=== PATIENT | female | born 1955 | race Caucasian/White ===

== ENCOUNTER → 2017-07-01 14:07 | Outpatient (CLI) | payer OTHER, SELFPAY ==
--- NOTE | 2017-07-01 14:11 | HPBI_ITS ---
MAMMOGRAPHY - BILATERAL SCREENING REASON FOR EXAM: Female, 61 years old. Routine annual screening examination. PERTINENT HISTORY: Grandmother with breast cancer. Aunt with breast cancer. TECHNIQUE: Digital bilateral breast dottie (3D mammographic acquisition) in the CC and MLO projections. 2-D mediolateral oblique (MLO) and craniocaudad (CC) views of both breasts were obtained. CAD: Full Field Digital Mammography with Computer Added Detection was performed. COMPARISON: Comparison is made with prior study dated June 28, 2016 and June 19, 2015. FINDINGS: Breast Composition: The breasts are heterogeneously dense, which may obscure small masses. There are no dominant masses or suspicious calcifications. No other significant abnormalities are identified. There has been no significant change since the prior study. HPBI/SCREENING MAMM (CAD), BILAT IMPRESSION: Stable bilateral screening mammogram. Yearly follow-up mammogram recommended. (A) ASSESSMENT CATEGORY: BIRADS Category 1: Negative. A letter regarding these results will be sent to the patient by the facility within 30 days. Approximately 10% of breast cancers are not detected by mammography. A normal mammogram should not delay biopsy of a clinically suspicious abnormality. [id number] Electronically Signed: Austen Clement MD at 15:46 EST Tel [phone], Service support ,
== END ==
PROVIDERS: Family Provider Nurse Practitioner; PCP Nurse Practitioner; Visit Provider Nurse Practitioner
DX: Z78.0 Asymptomatic menopausal state (principal); Z12.31 Encounter for screening mammogram for malignant neoplasm of breast
CPT/HCPCS: 77063; 77067

== ENCOUNTER → 2017-07-10 14:03 | Outpatient (CLI) | payer OTHER, SELFPAY ==
--- NOTE | 2017-07-10 14:06 | HPBD_ITS ---
STUDY: DUAL ENERGY X-RAY ABSORPTIOMETRY / DXA REASON FOR EXAM: Female, 61 years old. The patient is postmenopausal. Loss of height. TECHNIQUE: Bone Mineral Density (BMD) measurements of lumbar spine and bilateral hips were obtained. COMPARISON: Comparison is made with prior examination dated June 22, 2015. FINDINGS: Lumbar Spine (L1-L4): g/cm2 (1.005) / T-score (-1.6) / Z-score (-0.2) Findings are suggestive of osteopenia with a moderate fracture risk. Left Femur Total: g/cm2 (0.581) / T-score (-3.4) / Z-score (-2.3) Left Femoral Neck: g/cm2 (0.631) / T-score (-2.9) / Z-score (-1.6) Right Femur Total: g/cm2 (0.588) / T-score (-3.3) / Z-score (-2.3) Right Femoral Neck: g/cm2 (0.665) / T-score (-2.7) / Z-score (-1.3) The T-Scores on the most recent prior examination were: Lumbar Spine (L1-L4): There has been improvement of bone density since the previous examination. Left Femur Total: which represents a worsening of 3%. Right Femur Total: which represents an improvement of 2.6%. HPBD/Dexa Bone Density Study (HP) IMPRESSION: The patient is considered osteoporotic as outlined below according to World Sunny Organization (WHO) criteria with a high fracture risk. There has been improvement of bone density since the previous examination. Reference Information: The T-score is the number of standard deviations above or below the standard which is normal for young adults at their peak bone mineral density. The World Health Organization (WHO) interprets the T-scores as follows: Above -1 Normal bone density Between -1 and -2.5 Osteopenia Equal to / or below -2.5 Osteoporosis As a practical clinical guideline, osteopenia may be graded as follows: Mild -1 through -1.5 Moderate -1.6 through -2.0 Severe -2.1 through -2.4 The Z-score is the number of standard deviations above or below age-matched controls. A Z-score of less than -1.5 would be considered abnormal. References: 1. NIH Osteoporosis and Related Bone Diseases http://www.osteo.org 2. International Society for Clinical Densitometry http://www.iscd.org 3. National Osteoporosis Foundation http://www.nof.org Electronically Signed: Austen Clement MD at 15:19 EST Tel [phone], Service support ,
== END ==
PROVIDERS: Family Provider Nurse Practitioner; PCP Nurse Practitioner; Visit Provider Nurse Practitioner
DX: M81.0 Age-related osteoporosis without current pathological fracture (principal); Z78.0 Asymptomatic menopausal state
CPT/HCPCS: 77080

== ENCOUNTER 2017-07-30 09:35 | Emergency (ER) | payer OTHER, SELFPAY ==
[2017-07-30 09:36] VITALS: BP 128/82; PULSE 84; RESP 20; TEMP 36.7; O2SAT 94; BMI 22.8
--- NOTE | 2017-07-30 09:56 | EKG12_ITS ---
Test Reason : SYNCOPE Blood Pressure : / mmHG Vent. Rate : 083 BPM Atrial Rate : 083 BPM P-R Int : 160 ms QRS Dur : 090 ms QT Int : 354 ms P-R-T Axes : 070 055 058 degrees QTc Int : 415 ms Normal sinus rhythm Normal ECG Confirmed by KACY NUNES, PIERRE ([id number]), non linear editor LEDA OTTO ([id number]) on 07/31/2017 2:31:53 PM Referred By: Confirmed By:PIERRE WOODRUFF MD
--- NOTE | 2017-07-30 09:56 | CT_ITS ---
STUDY: CT BRAIN WITHOUT CONTRAST REASON FOR EXAM: Female, 61 years old. Syncope. Tremors. No seizure history. RADIATION DOSAGE (If Supplied By Facility): CTDIvol = ( 44.99 ) mGy, DLP = ( 745.49 ) mGycm TECHNIQUE: Transaxial CT imaging of the brain was performed without administration of intravenous contrast material. Individualized dose optimization techniques were used for this CT. COMPARISON: None. FINDINGS: Normal soft tissue structures. Normal calvarium. Keno Attendant scanogram image shows normal-appearing sized sella. Normal size ventricles and extra-axial spaces for the patient's age. Normal white matter tracts of the cerebral hemispheres. Normal basal ganglia and thalami. Normal brainstem. Normal cerebellum. There is no intracranial hemorrhage or abnormal extra axial fluid collection identified. There are no findings of an acute territorial ischemic infarction. Normal visualized paranasal sinuses. Left greater than right degenerative TMJs noted. CT/Brain/Head without Contrast IMPRESSION: Nonacute unenhanced CT scan of the brain. Negative for intracranial acute hemorrhage or large territorial acute ischemic infarct identified. Electronically Signed: Chad Linton, at 11:03 EDT Tel , Service support ,
--- NOTE | 2017-07-30 09:58 | ED.VISSUMM ---
- ER Visit Summary Date of Service: 07/30/17 Chief Complaint: Syncope History of Present Illness: The patient is a 61 F that had a brief shaking episode in the loss of consciousness this morning that lasted for less than a few minutes. She woke up spontaneously. She had syncope in the past, but never had shaking with it. Her only other symptoms today include a headache. She attributes this to sinus congestion. She has had congestion and a sore throat. She also has upper bilateral back pain. This is not new. She denies any chest pain, palpitations, or heart racing. Denies shortness of breath. Denies abdominal pain or other GI symptoms. Denies new back pain. Denies weakness or numbness. Denies change in vision, speech, swallowing, or balance. Has any history of seizures. She denies taking any new medications. Denies any trauma. Physical Examination: Vital signs unremarkable. Afebrile. Alert and oriented. No acute distress. HEENT exam unremarkable. Neck nontender. Heart regular. Lungs clear. Abdomen soft. No focal or lateralizing abnormalities. NIH stroke scale is 0. Skin appears normal. Test Results: EKG shows sinus rhythm at a rate of 83. No sign of prior infarction. No Q waves. No dysrhythmias, Brugada, or any other rhythm abnormalities. Labs and CT pending. Emergency Department Course and Treatment: Patient placed on a monitor. N.p.o. while awaiting results. CT head showed no acute abnormalities. Chest x-ray showed no acute abnormalities. Troponin normal. White count 4.3, glucose 132, creatinine 1.06. Coags unremarkable. Patient was observed on the monitor. She had no new or recurrent symptoms. I advised the patient that continued evaluation for syncope in her case would require admission for cardiac monitoring. Patient declined this. She said she had multiple episodes of syncope in the past, and would like to go home. She voiced understanding of the risks. Patient did request antibiotics for a sinus infection. Will prescribe doxycycline. Treatment Plan: As above Disposition: Discharged Impression: 1. Syncope This note was generated with [employer] software. It may contain incorrect words, spelling, and punctuation that were not noted in review of the chart prior to signing ED Disposition - Plan for ED Patient: Chief Complaint: Syncope Referrals: Sabine Ward [Primary Care Provider] -
[2017-07-30 10:01] VITALS: BP 123/81; PULSE 104; RESP 20; O2SAT 96
[2017-07-30 10:06] LABS: Bedside Glucose 125 mg/dL (70-110)
[2017-07-30 10:08] LABS: Absolute Lymphocyte Count 0.48 X10^3/ul (0.83-4.51); Absolute Neutrophil Count 2.9 X10^3/uL (2.0-7.7); Basophil# 0.04 X10^3/uL; Basophil% 0.9 % (0-1); Eosinophil# 0.11 X10^3/uL; Eosinophils% 2.6 % (0-5); Hematocrit 38.8 % (37-47); Hemoglobin 13.1 g/dl (12.0-15.0); Lymphocyte # 0.48 X10^3/ul (4.0); Lymphocyte % 11.2 % (19-41); Mean Corp Hgb Conc 33.8 g/gl (32-36); Mean Corpuscular Hgb 31.6 pg (27.0-32.0); Mean Corpuscular Volume 93.7 fL (81-99); Mean Platelet Vol. 8.9 fl (6.2-12.0); Monocyte# 0.78 X10^3/uL; Monocyte% 18.2 % (0-10); Neutrophil # 2.86 X10^3/uL (2.7-7.7); Neutrophil % 66.9 % (47-70); Platelet Count 190 K/mm3 (150-450); RBC Distribution Width CV 11.8 % (11.6-14.6); RBC Distribution Width SD 39.8 fl (35.1-43.9); Red Blood Count 4.14 M/mm3 (4.2-5.4); White Blood Count 4.3 K/mm3 (4.4-11.0)
[2017-07-30 10:10] LABS: Differential Indicated SCAN CRITERIA MET; POSITIVE COUNT NO; POSITIVE DIFFERENTIAL YES; POSITIVE MORPHOLOGY NO
[2017-07-30 10:25] LABS: Anion Gap 6 (5-15); BUN 14 mg/dL (7-18); BUN/Creat Ratio 13.2 RATIO (10-20); Calcium,Total 8.4 mg/dL (8.5-10.1); Chloride 103 mmol/L (98-107); Creatinine, Serum 1.06 mg/dL (0.55-1.02); EST Glomerular Filtration Rate 56 mL/min (>60); Est Glom Filt Rate - Afr Amer 67 mL/min (>60); Estimated Creatinine Clearance 41.52 ml/min; Glucose 132 mg/dL (74-106); Potassium 3.8 mmol/L (3.5-5.1); Sodium Level 139 mmol/L (136-145)
--- NOTE | 2017-07-30 10:32 | RAD_ITS ---
STUDY: X-RAY CHEST REASON FOR EXAM: Female, 61 years old. Cough and chest congestion for a week. Lightheaded. Syncopal episode today. Upper body tremors. TECHNIQUE: Single AP upright portable chest view. COMPARISON: 06/13/2015 chest FINDINGS: EKG wires overlie chest. The lungs appear clear of focal pulmonary consolidation with air bronchograms and appear well expanded. There is no demonstrated pleural abnormality. Normal size heart for projection. Normal mediastinum and nora. Normal visualized pulmonary arteries. Normal visualized aortic knob and descending thoracic aorta given mild S-shaped thoracic scoliosis. Moderate to severe degenerative thoracic spine. Normal visualized ribs, clavicles, and shoulders. There is no demonstrated abnormality of the visualized soft tissue structures of the upper abdomen. No subdiaphragmatic free air seen grossly. RAD/Chest 1 View IMPRESSION: Nonacute x-ray examination of the chest. No active cardiopulmonary disease identified. Electronically Signed: Chad Linton, at 11:15 EDT Tel , Service support ,
[2017-07-30 10:34] LABS: International Normalized Ratio 1.1; Partial Thromboplast Time 23.3 Seconds (24.1-36.2); Prothrombin Time (Protime)PT. 14.4 SECONDS (11.7-14.9)
[2017-07-30 11:17] VITALS: BP 130/82; PULSE 67; RESP 16; O2SAT 97
[2017-07-30 11:54] VITALS: BP 158/100; PULSE 92; RESP 16; O2SAT 94
[2017-07-30 12:04] VITALS: BP 154/93; PULSE 92; RESP 21; O2SAT 96
--- NOTE | 2017-07-30 12:47 | ED.RN ---
[facility] CAN BE DISCONTINUED PER DR HARRIS'S ORDER. CT SCAN NEGATIVE AND PT WILL BE DISCHARGED TO HOME.
--- NOTE | 2017-07-30 12:50 | ED.DEP ---
ED Disposition - Plan for ED Patient: Chief Complaint: Syncope Instructions: ED Fainting Unkn Cause Prescriptions: Doxycycline Monohydrate 100 mg PO BID #20 cap Referrals: Sabine Ward [Primary Care Provider] -
[2017-07-30 12:58] VITALS: BP 165/107; PULSE 92; RESP 18; O2SAT 93
== END 2017-07-30 12:58 | disposition home or self-care (01) ==
PROVIDERS: Emergency Provider Emergency Medicine; Family Provider Nurse Practitioner; PCP Nurse Practitioner
DX: R55 Syncope and collapse (principal); M81.0 Age-related osteoporosis without current pathological fracture; J45.909 Unspecified asthma, uncomplicated; K21.9 Gastro-esophageal reflux disease without esophagitis; Z79.899 Other long term (current) drug therapy
CPT/HCPCS: 70450; 71045; 80048; 82962; 84484; 85025; 85610; 85730; 93005; 99285; J7030; A4216

== ENCOUNTER → 2017-08-22 10:38 | Outpatient (CLI) | payer OTHER, SELFPAY ==
--- NOTE | 2017-08-22 10:40 | ECHOD_ITS ---
Reason For Study: Syncopal Episode Procedure This was a 2D Doppler, Color Flow transthoracic echocardiogram. The exam was of adequate technical quality. Exam performed in department. Left Ventricle Normal LV size. Left ventricular systolic function is normal. The estimated ejection fraction is 65 %. Normal diastology for age. No regional wall motion abnormalities noted. Right Ventricle Normal RV size. Normal systolic function. Atria Normal left atrium. The right atrium is mildly enlarged. No doppler evidence for ASD. Mitral Valve There is no mitral annular calcification. Normal mitral valve. Trivial mitral valve insufficiency. Tricuspid Valve Normal tricuspid valve. Mild tricuspid valve insufficiency. Right ventricular systolic pressure estimated to be 24 mmHg. Aortic Valve Trisinus/trileaflet aortic valve. Mild focal aortic valve calcification. Trivial aortic valve insufficiency. Pulmonic Valve The pulmonic valve is not well visualized. Mild (1+) pulmonic valve insufficiency. Great Vessels Normal sized aortic root. Pericardium/Pleural No pericardial effusion. MMode/2D Measurements & Calculations LVIDd: 3.2 cm IVSd: 0.74 cm Ao root diam: 2.6 cm LVIDs: 2.2 cm LVPWd: 0.79 cm LA dimension: 3.4 cm RVDd: 2.5 cm FS: 29.2 % LAV(MOD-bp): 24.5 ml LA A4 area: 8.1 cm2 RA A4 area: 10.5 cm2 LAV(MOD-bp) Indexed: 16.6 ml/m2 LAV(MOD-sp2): 30.8 ml LAV(MOD-sp4): 14.0 ml Doppler Measurements & Calculations MV E max norberto: 63.6 cm/sec Lat Peak E' Norberto: 7.1 cm/sec Med Peak E' Norberto: 6.3 cm/sec MV A max norberto: 69.0 cm/sec E/E' lat: 9.0 E/E' med: 10.1 MV E/A: 0.92 Ao V2 max: 140.2 cm/sec AI max norberto: 444.7 cm/sec LV V1 max: 113.8 cm/sec Ao max P.9 mmHg AI max P.3 mmHg LV V1 max P.2 mmHg Ao V2 mean: 101.3 cm/sec AI dec slope: 189.9 cm/sec2 Ao mean P.5 mmHg AI P1/2t: 685.8 msec Ao V2 VTI: 28.1 cm PA V2 max: 104.0 cm/sec TR max norberto: 226.2 cm/sec TR max P.5 mmHg Interpretation Summary Left ventricular systolic function is normal. The estimated ejection fraction is 65 %. The right atrium is mildly enlarged. Trivial mitral valve insufficiency. Mild tricuspid valve insufficiency. Mild focal aortic valve calcification. Trivial aortic valve insufficiency. Mild (1+) pulmonic valve insufficiency. Right ventricular systolic pressure estimated to be 24 mmHg. Normal diastology for age. Ordering Physician: Sabine Ward Referring Physician: Sabine Ward Performed By: Orquidea Carr, MIRLANDECS, RVT
== END ==
PROVIDERS: Family Provider Nurse Practitioner; PCP Nurse Practitioner; Visit Provider Nurse Practitioner
DX: R55 Syncope and collapse (principal)
CPT/HCPCS: 93306

== ENCOUNTER → 2018-03-24 12:37 | Outpatient (CLI) | payer OTHER, SELFPAY ==
--- NOTE | 2018-03-24 12:47 | CT_ITS ---
STUDY: CT CHEST WITHOUT CONTRAST REASON FOR EXAM: Female, 62 years old. Pulmonary disease. History of asthma RADIATION DOSAGE (If Supplied By Facility): CTDIvol = ( 13.96 ) mGy, DLP = ( 438.10 ) mGycm TECHNIQUE: Transaxial imaging was performed without the administration of intravenous contrast material. Individualized dose optimization techniques were used for this CT. COMPARISON: None. FINDINGS: TRACHEA, THYROID, ESOPHAGUS: No tracheomalacia,stricture or wall thickening. Thyroid and esophagus are normal CARDIOVASCULAR SYSTEM: The thoracic aorta is grossly within normal limits. The pulmonary trunk and the left pulmonary arteries are also grossly within normal limits. The heart is not enlarged. There are no vascular developmental anomalies. ARJUN AND LYMPH NODES: No hilar masses and no mediastinal, hilar, axillary or supraclavicular adenopathy LUNGS, LOW-ATTENUATION: No traction bronchiectasis, honeycombing, lung cysts or cavitations. Centrilobular emphysematous changes in both lungs. LUNGS, HIGH ATTENUATION: No nodules/masses, ground glass opacities/consolidations or increased interstitial markings LUNGS, MOSAIC/CRAZY PAVING: Not evident PLEURA AND CHEST WALL: No plural effusions, pneumothoraces,rib fractures or any osteolytic/osteoblastic changes . The soft tissue chest wall including the breasts are normal UPPER ABDOMEN: Benign hepatic cysts. The largest is 2.1 cm and is in the right lobe. CT/Chest without Contrast IMPRESSION: Centrilobular emphysematous changes in both lungs. No acute findings in the lungs. Benign hepatic cysts Electronically Signed: Chace Box MD at 3:33 EST Tel , Service support ,
== END ==
PROVIDERS: Family Provider Nurse Practitioner; PCP Nurse Practitioner; Referring Provider Internal Medicine Pulmonary Disease; Visit Provider Internal Medicine Pulmonary Disease
DX: J84.9 Interstitial pulmonary disease, unspecified (principal); J47.9 Bronchiectasis, uncomplicated
CPT/HCPCS: 71250

== ENCOUNTER → 2018-07-27 08:23 | Outpatient (CLI) | payer OTHER, SELFPAY ==
--- NOTE | 2018-07-27 08:26 | BI_ITS ---
MAMMOGRAPHY - BILATERAL SCREENING REASON FOR EXAM: Female, 62 years old. Routine annual screening examination. PERTINENT HISTORY: Grandmother with breast cancer. TECHNIQUE: Digital bilateral breast dottie (3D mammographic acquisition) in the CC and MLO projections. 2-D mediolateral oblique (MLO) and craniocaudad (CC) views of both breasts were obtained. CAD: Full Field Digital Mammography with Computer Added Detection was performed. COMPARISON: Comparison is made with prior study dated July 01, 2017 and June 28, 2016. FINDINGS: Breast Composition: The breasts are heterogeneously dense, which may obscure small masses. There are no dominant masses or suspicious calcifications. No other significant abnormalities are identified. There has been no significant change since the prior study. BI/SCREENING MAMM (CAD), BILAT IMPRESSION: Stable bilateral screening mammogram. Yearly follow-up mammogram recommended. (A) ASSESSMENT CATEGORY: BIRADS Category 1: Negative. A letter regarding these results will be sent to the patient by the facility within 30 days. Approximately 10% of breast cancers are not detected by mammography. A normal mammogram should not delay biopsy of a clinically suspicious abnormality. [id number] Electronically Signed: Austen Clement, at 9:43 EDT , Service support ,
== END ==
PROVIDERS: Family Provider Nurse Practitioner; PCP Nurse Practitioner; Referring Provider Nurse Practitioner; Visit Provider Nurse Practitioner
DX: Z12.31 Encounter for screening mammogram for malignant neoplasm of breast (principal); Z80.3 Family history of malignant neoplasm of breast
CPT/HCPCS: 77063; 77067

== ENCOUNTER → 2019-06-09 11:17 | Outpatient (CLI) | payer OTHER, SELFPAY ==
--- NOTE | 2019-06-09 11:21 | BD_ITS ---
STUDY: DUAL ENERGY X-RAY ABSORPTIOMETRY / DXA REASON FOR EXAM: Female, 63 years old. 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 COMPARISON: Comparison is made with prior study dated July 10, 2017. FINDINGS: Lumbar Spine (L1-L4): g/cm2 (1.073) / T-score (-1.1) / Z-score (0.5) Findings are suggestive of osteopenia with a low fracture risk. Left Femur Total: g/cm2 (0.593) / T-score (-3.3) / Z-score (-2.1) Left Femoral Neck: g/cm2 (0.654) / T-score (-2.8) / Z-score (-1.3) Right Femur Total: g/cm2 (0.729) / T-score (-2.2) / Z-score (-1.1) Right Femoral Neck: g/cm2 (0.845) / T-score (-1.4) / Z-score (0.0) The T-Scores on the most recent prior examination were: Lumbar Spine (L1-L4): There has been improvement of bone density since the previous examination. Left Femur Total: which represents an improvement of 3.6%. Right Femur Total: which represents an improvement of 27.1%. BD/Dexa Bone Density Study IMPRESSION: The patient is considered osteoporotic as outlined below according to World Sunny Organization (WHO) criteria with a high fracture risk. There has been improvement of bone density since the previous examination. Reference Information: The T-score is the number of standard deviations above or below the standard which is normal for young adults at their peak bone mineral density. The World Health Organization (WHO) interprets the T-scores as follows: Above -1 Normal bone density Between -1 and -2.5 Osteopenia Equal to / or below -2.5 Osteoporosis As a practical clinical guideline, osteopenia may be graded as follows: Mild -1 through -1.5 Moderate -1.6 through -2.0 Severe -2.1 through -2.4 The Z-score is the number of standard deviations above or below age-matched controls. A Z-score of less than -1.5 would be considered abnormal. References: 1. NIH Osteoporosis and Related Bone Diseases http://www.osteo.org 2. International Society for Clinical Densitometry http://www.iscd.org 3. National Osteoporosis Foundation http://www.nof.org Electronically Signed: Austen Clement, at 12:37 EST , Service support ,
--- NOTE | 2019-06-09 11:21 | BI_ITS ---
MAMMOGRAPHY - BILATERAL SCREENING REASON FOR EXAM: Female, 63 years old. Routine annual screening examination. PERTINENT HISTORY: Grandmother with breast cancer. Aunt with breast cancer. TECHNIQUE: Digital bilateral breast sharon (3D mammographic acquisition) in the CC and MLO projections. 2-D mediolateral oblique (MLO) and craniocaudad (CC) views of both breasts were obtained. CAD: Full Field Digital Mammography with Computer Added Detection was performed. COMPARISON: Comparison is made with prior examination dated July 27, 2018 and July 01, 2017. FINDINGS: Breast Composition: The breasts are heterogeneously dense, which may obscure small masses. There are no dominant masses or suspicious calcifications. No other significant abnormalities are identified. There has been no significant change since the prior study. BI/SCREEN MAMM (CAD) W/SHARON BILAT IMPRESSION: Stable bilateral screening mammogram. Yearly follow-up mammogram recommended. (A) ASSESSMENT CATEGORY: BIRADS Category 1: Negative. A letter regarding these results will be sent to the patient by the facility within 30 days. Approximately 10% of breast cancers are not detected by mammography. A normal mammogram should not delay biopsy of a clinically suspicious abnormality. [id number] Electronically Signed: Austen Clement, at 15:41 EST , Service support ,
== END ==
PROVIDERS: PCP Nurse Practitioner; Referring Provider Nurse Practitioner; Visit Provider Nurse Practitioner
DX: M81.0 Age-related osteoporosis without current pathological fracture (principal); Z12.31 Encounter for screening mammogram for malignant neoplasm of breast
CPT/HCPCS: 77063; 77067; 77080

== ENCOUNTER → 2020-07-07 10:48 | Outpatient (CLI) | payer MEDICARE, SELFPAY ==
--- NOTE | 2020-07-07 10:52 | BI_ITS ---
MAMMOGRAPHY - BILATERAL SCREENING REASON FOR EXAM: Female, 64 years old. Routine annual screening examination. PERTINENT HISTORY: Grandmother with breast cancer. Aunt with breast cancer. TECHNIQUE: Digital bilateral breast sharon (3D mammographic acquisition) in the CC and MLO projections. 2-D mediolateral oblique (MLO) and craniocaudad (CC) views of both breasts were obtained. CAD: Full Field Digital Mammography with Computer Added Detection was performed. COMPARISON: Comparison is made with prior study of 06/09/2019 and July 27. FINDINGS: Breast Composition: The breasts are heterogeneously dense, which may obscure small masses. There is a 1.3 cm x 1 cm possible nodular density in the central lateral aspect of the left breast. Correlation with ultrasound is recommended. No other significant abnormalities are identified. BI/SCRN MAMM (CAD)W/SHARON BILAT IMPRESSION: Possible 1.3 cm x 1 cm nodular density in the central lateral aspect of the left breast. Correlation with ultrasound is recommended. ASSESSMENT CATEGORY: BIRADS Category 0: Incomplete. Need additional imaging evaluation. A letter regarding these results will be sent to the patient by the facility within 30 days. Approximately 10% of breast cancers are not detected by mammography. A normal mammogram should not delay biopsy of a clinically suspicious abnormality. [id number] Electronically Signed: Austen Clement MD at 12:12 EST , Service support ,
== END ==
PROVIDERS: PCP Nurse Practitioner Family; Referring Provider Nurse Practitioner Family; Visit Provider Nurse Practitioner Family
DX: Z12.31 Encounter for screening mammogram for malignant neoplasm of breast (principal); N63.20 Unspecified lump in the left breast, unspecified quadrant
CPT/HCPCS: 77063; 77067

== ENCOUNTER → 2020-07-10 09:55 | Outpatient (CLI) | payer MEDICARE, SELFPAY ==
--- NOTE | 2020-07-10 09:56 | US_ITS ---
STUDY: ULTRASOUND BREAST - LEFT REASON FOR EXAM: Female, 64 years old. Abnormal density on mammogram. TECHNIQUE: Axial and longitudinal images of the LEFT breast were performed with a high resolution ultrasound transducer. # OF IMAGES: 46 COMPARISON: None. FINDINGS: LEFT Breast: There is no abnormality in the soft tissues of the breast to correlate with the mammographic abnormality. There is no abnormal soft tissue tissue mass. There is no cyst formation. US/Breast Limited Unilateral IMPRESSION: There is no abnormality in the soft tissues of the breast to correlate with the mammographic abnormality. There is no abnormal soft tissue tissue mass. There is no cyst formation. ASSESSMENT CATEGORY: BIRADS Category 2: Benign. A letter regarding these results will be sent to the patient by the facility within 30 days. Electronically Signed: Ngozi Barnes MD at 15:04 EST Tel , Service support ,
== END ==
PROVIDERS: PCP Nurse Practitioner Family; Referring Provider Nurse Practitioner Family; Visit Provider Nurse Practitioner Family
DX: R92.8 Other abnormal and inconclusive findings on diagnostic imaging of breast (principal)
CPT/HCPCS: 76642

== ENCOUNTER → 2021-01-23 12:42 | Outpatient (CLI) | payer MEDICARE, SELFPAY ==
--- NOTE | 2021-01-23 14:12 | ST.MBS ---
Modified Barium Swallow - Patient Information Study Date: 01/23/21 Study Time: 13:00 Direct Billable Minutes: 135 Total Minutes procedure & reportin Diagnosis: Interstitial pulmonary disease, unspecified (J84.9) Referring Physician: Chad Romero V Reason for Referral: Objective assessment of swallow function under fluoroscopy order per referring physician in a patient w/ Interstitial pulmonary disease, unspecified; patient reports coughing when things go down the wrong pipe and states this may happen ~1x/month. Reports coughing w/ peaches recently. Denies hx of PNA in the past 5 years. Medical History: History provided by patient - seasonal allergies, asthma, GERD Dentition: Natural Teeth Respiratory Status: Oxygenating on Room Air - Penetration-Aspiration Scale Penetration-Aspiration Scale: OBJECTIVE ASSESSMENT OF SWALLOW FUNCTION (QUANTITATIVE ? PER TRIAL): PENETRATION / ASPIRATION SCALE (JORDAN): 1 = does not enter airway 2 = enters airway/above vocal folds/ejected 3 = enters airway/above vocal folds/not ejected 4 = enters airway/contacts vocal folds/ejected 5 = enters airway/contacts vocal folds/not ejected 6 = enters airway/below vocal folds/ejected 7 = enters airway/below vocal folds/not ejected despite effort 8 = enters airway/below vocal folds/no effort - Penetration-Aspiration Scale Score Thin Liquid via teaspoon Result: 1= does not enter airway Thin Liquid via teaspoon Trial 2 Result: 2= enter airway/above vocal folds/ejected Thin Liquid via large single sip from cup Result: 2= enter airway/above vocal folds/ejected Thin Liquid via sequential sips from cup Result: 5= enters airways/contacts vocal folds/not ejected Thin Liquid via single sip from straw Result: 1= does not enter airway Thin Liquid via small single sip from cup Result: 1= does not enter airway Pudding Result: 1= does not enter airway Pudding + Esophageal Screening Result: 1= does not enter airway Thin Liquid via small single sip from cup Trial 2 Result: 3= enters airways/above vocal folds/not ejected Thin Liquid via small single sip from cup Effortful swallow Result: 1= does not enter airway - Oral Phase Labial Seal: No Labial Escape Tongue Control During Bolus Hold: Cohesive bolus between tongue to palatal seal Bolus Preparation/Mastication: Timely and efficient chewing and mashing Bolus Transport/Lingual Motion: Slowed tongue motion Oral Residue: Residue collection on oral structures - Pharyngeal Phase Initiation of Pharyngeal Swallow: Bolus head in pyriforms Soft Palate Elevation: No bolus between soft palate and pharyngeal wall Laryngeal Elevation: Comp. Superior move thyroid cart w/comp. apprx arytenoid cart-epig pet Anterior Hyoid Excursion: Partial anterior movement Laryngeal Vestibule Closure at Height of Swallow: Incomplete; narrow column of air/contrast in laryngeal vestibule Pharyngeal Stripping Wave: Present - complete Pharyngoesophageal Segment Opening: Parital distension and partial duration; parital obstruction of flow Tongue Base Retraction: Trace column of contrast between tongue base & post. pharyngeal wall Pharyngeal Residue: Trace residue within or on pharyngeal structures - Esophageal Phase Esophageal Clearance: Esophageal retention - Diagnosis/Impression Diagnosis: mild oropharyngeal dysphagia (R13.12) Impression: The oral phase is primarily marked by reduced oral clearance, resulting in mild oral residue post deglutition. Residue effectively cleared w/ additional swallow. The pharyngeal phase is primarily marked by delayed pharyngeal swallow onset timing, resulting in suboptimal bolus location upon swallow onset (liquids pooling in pyriforms) and contributing to prandial laryngeal vestibule penetration. Reduced closure of the airway during deglutition insufficient anterior hyoid excursion resulting in reduced laryngeal vestibule closure, delayed and incomplete epiglottic inversion and reduced pharyngoesophageal segment distention/duration. Reduced pharyngeal contraction/swallow strength noted when cued for dry/volitional swallows to clear oropharyngeal residue. Screening of esophageal bolus clearance revealed marked retention. Laryngeal vestibule penetration occurred w/ intake of large volume/sequential boluses of thin liquid. Penetration contacted the vocal folds and was not ejected. Although aspiration was not visualized during this study, it is expected that continued laryngeal vestibule penetration w/out ejection would eventually accumulate and result in aspiration. Cannot rule out dysphagia as a contributing factor in respiratory disease. Use of a small volume thin liquid bolus in conjunction w/ an effortful swallow was effective to maintain sufficient laryngeal vestibule pressure/closure and eliminate penetration. Highly recommend skilled outpatient dysphagia intervention to implement an oropharyngeal strengthening exercise program focusing on improved swallow onset timing, anterior hyoid excursion, epiglottic inversion, PES distention and pharyngeal contraction. Extensive time spent following MBS conclusion reviewing images w/ the patient and providing education re: deficits identified and need for intervention to prevent further decline in swallow function. - Recommendations Diet: Regular Textures, Thin Liquids Compensatory Strategies: Small Sips - one sip at a time, effortful swallow, Sitting upright, Remain sitting upright for 30 minutes after PO intake - GERD precautions Need for Skilled Speech Therapy Services: Yes Education Completed: 1. Described result of evaluation. - Status Active ST Patient: Active - Contact Information [facility] Speech Therapy:: Soraya Wang M.A., [facility] PROGRAM DIRECTOR [address] [place] [address] x [phone] [email or web address] 01/23/21 16:01
== END ==
PROVIDERS: PCP Nurse Practitioner Family; Referring Provider Internal Medicine Pulmonary Disease; Visit Provider Internal Medicine Pulmonary Disease
DX: J84.9 Interstitial pulmonary disease, unspecified (principal)
CPT/HCPCS: 74230; 92611

== ENCOUNTER → 2021-03-09 12:31 | Outpatient (CLI) | payer MEDICARE, SELFPAY ==
[2021-03-09 15:24] LABS: Absolute Lymphocyte Count 0.99 X10^3/uL (0.83-4.51); Absolute Neutrophil Count 2.8 X10^3/uL (2.0-7.7); Basophil# 0.06 X10^3/uL; Basophil% 1.3 % (0-1); Eosinophil# 0.27 X10^3/uL; Eosinophils% 5.8 % (0-5); Hematocrit 41.8 % (37-47); Hemoglobin 14.1 g/dL (12.0-15.0); Lymphocyte # 0.99 X10^3/ul (0.83-4.51); Lymphocyte % 21.4 % (19-41); Mean Corp Hgb Conc 33.7 g/dL (32-36); Mean Corpuscular Hgb 31.5 pg (27.0-32.0); Mean Corpuscular Volume 93.3 fL (81-99); Mean Platelet Vol. 9.2 fl (6.2-12.0); Monocyte# 0.46 X10^3/uL; Monocyte% 9.9 % (0-10); NRBC Flagged by Analyzer 0 % (0-5); Neutrophil # 2.84 X10^3/uL (2.7-7.7); Neutrophil % 61.4 % (47-70); Platelet Count 287 K/mm3 (150-450); RBC Distribution Width SD 41.2 fl (35.1-43.9); Red Blood Count 4.48 M/mm3 (4.2-5.4); White Blood Count 4.6 K/mm3 (4.4-11.0)
== END ==
PROVIDERS: PCP Nurse Practitioner Family; Referring Provider Internal Medicine Pulmonary Disease; Visit Provider Internal Medicine Pulmonary Disease
DX: J45.909 Unspecified asthma, uncomplicated (principal)
CPT/HCPCS: 36415; 85025

== ENCOUNTER 2021-07-26 14:18 | Outpatient (CLI) | payer MEDICARE, SELFPAY ==
--- NOTE | 2021-07-26 14:21 | BI_ITS ---
MAMMOGRAPHY - BILATERAL SCREENING REASON FOR EXAM: Female, 65 years old. Routine annual screening examination. PERTINENT HISTORY: Sister with breast cancer. Grandmother with breast cancer. Aunt with breast cancer. TECHNIQUE: Digital bilateral breast sharon (3D mammographic acquisition) in the CC and MLO projections. 2-D mediolateral oblique (MLO) and craniocaudad (CC) views of both breasts were obtained. CAD: Full Field Digital Mammography with Computer Added Detection was performed. COMPARISON: Comparison is made with prior study dated 07/07/2020 and 06/09/2019. FINDINGS: Breast Composition: The breasts are heterogeneously dense, which may obscure small masses. There are no dominant masses or suspicious calcifications. No other significant abnormalities are identified. There has been no significant change since the prior study. BI/SCRN MAMM (CAD)W/SHARON BILAT IMPRESSION: Stable bilateral screening mammogram. Yearly follow-up mammogram recommended. (A) ASSESSMENT CATEGORY: BIRADS Category 1: Negative. A letter regarding these results will be sent to the patient by the facility within 30 days. Approximately 10% of breast cancers are not detected by mammography. A normal mammogram should not delay biopsy of a clinically suspicious abnormality. [id number] Electronically Signed: Austen Clement MD at 15:45 EDT ,
--- NOTE | 2021-07-26 14:29 | BD_ITS ---
STUDY: DUAL ENERGY X-RAY ABSORPTIOMETRY / DXA REASON FOR EXAM: Female, 65 years old. M810. Patient is postmenopausal. TECHNIQUE: Bone Mineral Density (BMD) measurements of lumbar spine and bilateral hips were obtained. COMPARISON: Comparison is made with prior examination of 06/09/2019. FINDINGS: Lumbar Spine (L1-L4): g/cm2 (0.744) / T-score (-3.0) / Z-score (-1.1) Findings are suggestive of osteoporosis with a high fracture risk. Left Femur Total: g/cm2 (0.529) / T-score (-3.4) / Z-score (-2.1) Left Femoral Neck: g/cm2 (0.487) / T-score (-3.3) / Z-score (-1.7) Right Femur Total: g/cm2 (0.513) / T-score (-3.5) / Z-score (-2.2) Right Femoral Neck: g/cm2 (0.506) / T-score (-3.1) / Z-score (-1.5) The T-Scores on the most recent prior examination were: Lumbar Spine (L1-L4): There has been worsening of bone density since the previous examination. Left Femur Total: which represents a worsening of 1.7%. Right Femur Total: which represents a worsening of 23.6%. BD/Dexa Bone Density Study IMPRESSION: The patient is considered osteoporotic as outlined below according to World Sunny Organization (WHO) criteria with a high fracture risk. There has been worsening of bone density since the previous examination. Reference Information: The T-score is the number of standard deviations above or below the standard which is normal for young adults at their peak bone mineral density. The World Health Organization (WHO) interprets the T-scores as follows: Above -1 Normal bone density Between -1 and -2.5 Osteopenia Equal to / or below -2.5 Osteoporosis As a practical clinical guideline, osteopenia may be graded as follows: Mild -1 through -1.5 Moderate -1.6 through -2.0 Severe -2.1 through -2.4 The Z-score is the number of standard deviations above or below age-matched controls. A Z-score of less than -1.5 would be considered abnormal. References: 1. NIH Osteoporosis and Related Bone Diseases www osteo.org 2. International Society for Clinical Densitometry www iscd.org 3. National Osteoporosis Foundation www nof.org Electronically Signed: Austen Clement MD at 8:58 EDT ,
== END 2021-07-26 23:59 | disposition home or self-care (01) ==
LOC: OPBD 14:18
PROVIDERS: PCP Nurse Practitioner Family; Visit Provider Nurse Practitioner Family
DX: M81.0 Age-related osteoporosis without current pathological fracture (principal); Z78.0 Asymptomatic menopausal state; Z12.31 Encounter for screening mammogram for malignant neoplasm of breast; Z80.3 Family history of malignant neoplasm of breast
CPT/HCPCS: 77063; 77067; 77080

== ENCOUNTER → 2022-07-30 | Outpatient (CLI) | payer MEDICARE, SELFPAY ==
--- NOTE | 2022-07-30 12:05 | BI_ITS ---
MAMMOGRAPHY - BILATERAL SCREENING REASON FOR EXAM: Female, 66 years old. Routine annual screening examination. PERTINENT HISTORY: Sister with breast cancer. Grandmother with breast cancer. Aunt with breast cancer. TECHNIQUE: Digital bilateral breast sharon (3D mammographic acquisition) in the CC and MLO projections. 2-D mediolateral oblique (MLO) and craniocaudad (CC) views of both breasts were obtained. CAD: Full Field Digital Mammography with Computer Added Detection was performed. COMPARISON: Comparison is made with prior study dated July 26, 2021 and July 07, 2020. FINDINGS: Breast Composition: The breasts are heterogeneously dense, which may obscure small masses. There are no dominant masses or suspicious calcifications. No other significant abnormalities are identified. There has been no significant change since the prior study. BI/SCRN MAMM (CAD)W/SHARON BILAT IMPRESSION: Stable bilateral screening mammogram. Yearly follow-up mammogram recommended. (A) ASSESSMENT CATEGORY: BIRADS Category 2: Benign. A letter regarding these results will be sent to the patient by the facility within 30 days. Approximately 10% of breast cancers are not detected by mammography. A normal mammogram should not delay biopsy of a clinically suspicious abnormality. [id number] Electronically Signed: Austen Clement MD at 13:29 EDT ,
== END | disposition home or self-care (01) ==
LOC: OPBI 12:03
PROVIDERS: PCP Nurse Practitioner Family; Visit Provider Nurse Practitioner Family
DX: Z12.31 Encounter for screening mammogram for malignant neoplasm of breast (principal); Z80.3 Family history of malignant neoplasm of breast
CPT/HCPCS: 77063; 77067

== ENCOUNTER → 2023-07-15 | Outpatient (CLI) | payer MEDICARE, SELFPAY ==
--- NOTE | 2023-07-15 10:47 | RAD_ITS ---
EXAM: XR CHEST, 2 VIEWS CLINICAL INDICATION: Respiratory bronchiolitis TECHNIQUE: Frontal and lateral views of the chest. COMPARISON: No relevant prior studies available. FINDINGS: LUNGS AND PLEURAL SPACES: Lungs appear hyperinflated. HEART: Normal heart size. MEDIASTINUM: No mediastinal or hilar mass. BONES/JOINTS: Reverse S scoliosis of the thoracolumbar spine. RAD/Chest PA and Lateral IMPRESSION: Pulmonary hyperinflation. Scoliosis. Electronically Signed: Isaac Kincaid MD at 11:37 EDT ,
== END | disposition home or self-care (01) ==
PROVIDERS: PCP Nurse Practitioner Family; Referring Provider Internal Medicine Pulmonary Disease; Visit Provider Internal Medicine Pulmonary Disease
DX: J84.115 Respiratory bronchiolitis interstitial lung disease (principal); J47.9 Bronchiectasis, uncomplicated
CPT/HCPCS: 71046

== ENCOUNTER → 2023-08-19 | Outpatient (CLI) | payer MEDICARE, SELFPAY ==
--- NOTE | 2023-08-19 13:11 | BI_ITS ---
MAMMOGRAPHY - BILATERAL SCREENING REASON FOR EXAM: Female, 67 years old. Routine annual screening examination. PERTINENT HISTORY: Sister with breast cancer. Grandmother with breast cancer. TECHNIQUE: Digital bilateral breast sharon (3D mammographic acquisition) in the CC and MLO projections. 2-D mediolateral oblique (MLO) and craniocaudad (CC) views of both breasts were obtained. CAD: Full Field Digital Mammography with Computer Added Detection was performed. COMPARISON: Comparison is made with prior study dated July 30, 2022 and July 26, 2021. FINDINGS: Breast Composition: The breasts are heterogeneously dense, which may obscure small masses. There are no dominant masses or suspicious calcifications. No other significant abnormalities are identified. There has been no significant change since the prior study. BI/SCRN MAMM (CAD)W/SHARON BILAT IMPRESSION: Stable bilateral screening mammogram. Yearly follow-up mammogram recommended. (A) ASSESSMENT CATEGORY: BIRADS Category 1: Negative. A letter regarding these results will be sent to the patient by the facility within 30 days. Approximately 10% of breast cancers are not detected by mammography. A normal mammogram should not delay biopsy of a clinically suspicious abnormality. [id number] Electronically Signed: Austen Clement MD at 15:38 EDT ,
--- NOTE | 2023-08-19 13:12 | BD_ITS ---
STUDY: DUAL ENERGY X-RAY ABSORPTIOMETRY / DXA REASON FOR EXAM: Female, 67 years old. 627.8Menopausal postmenopausalBONE DENSITY REASON FOR EXAM TECHNIQUE: Bone Mineral Density (BMD) measurements of lumbar spine and bilateral hips were obtained. COMPARISON: Comparison is made with prior study July 26, 2021. FINDINGS: Lumbar Spine (L1-L4): g/cm2 (0.734) / T-score (-3.1) / Z-score (-1.0) Findings are suggestive of osteoporosis with a high fracture risk. Left Femur Total: g/cm2 (0.519) / T-score (-3.5) / Z-score (-2.0) Left Femoral Neck: g/cm2 (0.518) / T-score (-3.0) / Z-score (-1.3) Right Femur Total: g/cm2 (0.420) / T-score (-4.3) / Z-score (-2.9) Right Femoral Neck: g/cm2 (0.411) / T-score (-4.0) / Z-score (-2.2) The T-Scores on the most recent prior examination were: Lumbar Spine (L1-L4): There has been worsening of bone density since the previous examination. Left Femur Total: which represents a worsening of 2%. Right Femur Total: which represents a worsening of 18%. BD/Dexa Bone Density Study IMPRESSION: The patient is considered osteoporotic as outlined below according to World Sunny Organization (WHO) criteria with a high fracture risk. There has been worsening of bone density since the previous examination. Reference Information: The T-score is the number of standard deviations above or below the standard which is normal for young adults at their peak bone mineral density. The World Health Organization (WHO) interprets the T-scores as follows: Above -1 Normal bone density Between -1 and -2.5 Osteopenia Equal to / or below -2.5 Osteoporosis As a practical clinical guideline, osteopenia may be graded as follows: Mild -1 through -1.5 Moderate -1.6 through -2.0 Severe -2.1 through -2.4 The Z-score is the number of standard deviations above or below age-matched controls. A Z-score of less than -1.5 would be considered abnormal. References: 1. NIH Osteoporosis and Related Bone Diseases www osteo.org 2. International Society for Clinical Densitometry www iscd.org 3. National Osteoporosis Foundation www nof.org Electronically Signed: Austen Clement MD at 14:38 EDT ,
== END | disposition home or self-care (01) ==
LOC: OPBD 13:09
PROVIDERS: PCP Nurse Practitioner Family; Referring Provider Nurse Practitioner Family; Visit Provider Nurse Practitioner Family
DX: M81.0 Age-related osteoporosis without current pathological fracture (principal); Z78.0 Asymptomatic menopausal state; Z12.31 Encounter for screening mammogram for malignant neoplasm of breast; Z80.3 Family history of malignant neoplasm of breast
CPT/HCPCS: 77063; 77067; 77080

== ENCOUNTER → 2024-08-19 | Outpatient (CLI) | payer MEDICARE, SELFPAY ==
--- NOTE | 2024-08-19 09:42 | BI_ITS ---
EXAM: SCRN MAMM (CAD)W/SHARON BILAT DATE: 08/19/2024 CLINICAL HISTORY: F, Age 68 y/o , SCREENING History of sister, grandmother and aunt with breast cancer. BREAST CANCER RISK ASSESSMENT: Not assessed. TECHNIQUE: Bilateral screening digital breast tomosynthesis with 2D and 3D images. Computer aided detection. COMPARISON: Prior exam(s) dated August 19, 2023.. FINDINGS: TISSUE DENSITY: The breast tissue is heterogenously dense, which may obscure small masses. Bilateral Breast Mammographic Findings: Questionable 1.3 cm nodular density in the slightly upper lateral aspect of the left breast. Correlation with ultrasound recommended. BI/SCRN MAMM (CAD)W/SHARON BILAT IMPRESSION: Right Breast: BIRADS 1 NEGATIVE. Left Breast: BIRADS 0 Incomplete: Need additional imaging evaluation and/or elton or mammograms for comparison.. OVERALL FINAL ASSESSMENT: BIRADS 0 Incomplete: Need additional imaging evaluati on and/or prior mammograms for comparison. RECOMMENDATION: Routine annual follow-up in 1 Year A letter with findings and recommendations will be mailed to the patient. Reading Location: [place] [id number]
== END | disposition home or self-care (01) ==
LOC: OPBI 09:40
PROVIDERS: PCP Nurse Practitioner Family; Referring Provider Nurse Practitioner Family; Visit Provider Nurse Practitioner Family
DX: Z12.31 Encounter for screening mammogram for malignant neoplasm of breast (principal)
CPT/HCPCS: 77063; 77067

== ENCOUNTER → 2024-08-26 | Outpatient (CLI) | payer MEDICARE, SELFPAY ==
--- NOTE | 2024-08-26 12:20 | US_ITS ---
PROCEDURE: BREAST LIMITED UNILATERAL 08/26/2024 REASON FOR EXAM: NODULAR DENSITY TECHNIQUE: Targeted left breast ultrasound. COMPARISON: Prior mammogram dated August 19, 2024. FINDINGS: Left breast ultrasound was targeted to the upper-outer quadrant.. There is a 1.3 cm x 1.6 cm x 1.2 cm irregular hypodense nodule at the 2 o'clock position of the breast at 5 cm from the nipple. Biopsy recommended. US/Breast Limited Unilateral IMPRESSION: Impression: 1.3 cm x 1.6 cm 1.2 cm irregular hypodense nodule at the 2 o'clock position of the breast at 5 cm from the nipple. Biopsy recommended. Birads: BI-RADS 4: SUSPICIOUS ABNORMALITY. Reading Location: [place] [id number]
== END | disposition home or self-care (01) ==
PROVIDERS: PCP Nurse Practitioner Family; Referring Provider Nurse Practitioner Family; Visit Provider Nurse Practitioner Family
DX: R92.8 Other abnormal and inconclusive findings on diagnostic imaging of breast (principal)
CPT/HCPCS: 76642

== ENCOUNTER → 2024-09-08 | Outpatient (CLI) | payer MEDICARE, SELFPAY ==
--- NOTE | 2024-09-08 07:55 | US_ITS ---
PROCEDURE: BREAST LIMITED UNILATERAL 09/08/2024 REASON FOR EXAM: LEFT BREAST MASS Repeat sonogram of the left breast. TECHNIQUE: Targeted left breast ultrasound. COMPARISON: Comparison is made with prior sonogram of the left breast dated August 26, 2024. FINDINGS: Left breast ultrasound was targeted to the upper-outer quadrant.. Dense fibroglandular tissue at the area of interest. No focal lesion is seen. US/Breast Limited Unilateral IMPRESSION: Impression: Dense fibroglandular tissue. Dilated ducts. Birads: BI-RADS 2: BENIGN. RECOMMEND ANNUAL MAMMOGRAPHIC SCREENING. Reading Location: [id number]
== END | disposition home or self-care (01) ==
LOC: OPUS 07:52
PROVIDERS: PCP Nurse Practitioner Family; Referring Provider Surgery; Visit Provider Surgery
DX: N63.21 Unspecified lump in the left breast, upper outer quadrant (principal)
CPT/HCPCS: 76642